=== PATIENT | female | born 1975 | race Caucasian/White ===

== ENCOUNTER 2021-07-30 13:15 | Observation (INO) | payer OTHER, SELFPAY ==
[2021-07-30] VITALS (15 sets, daily range): BP systolic 120–171; BP diastolic 60–82; PULSE 69–81; RESP 10–23; TEMP 35.7–37.3; O2SAT 98–100; BMI 40.3
--- NOTE | 2021-07-30 14:29 | ECG_ITS ---
Test Reason : ?blood transfusion Blood Pressure : / mmHG Vent. Rate : 078 BPM Atrial Rate : 078 BPM P-R Int : 168 ms QRS Dur : 098 ms QT Int : 398 ms P-R-T Axes : 018 -10 031 degrees QTc Int : 453 ms Normal sinus rhythm Moderate voltage criteria for LVH, may be normal variant ( R in aVL , [place] product ) Borderline ECG No previous ECGs available Referred By: Generic ED Physician Electronically Signed By:Chau Walker
[2021-07-30 15:12] LABS: MANUAL DIFF FLAG NO
[2021-07-30 15:15] LABS: Basophils Absolute Auto 0.1 X10*3/uL (0.0-0.2); Basophils Percent Auto 0.7 % (0-2); Eosinophils Absolute Auto 0.1 X10*3/uL (0.0-0.4); Eosinophils Percent Auto 0.7 % (0-4); Hematocrit 23.9 % (37.0-47.0); Imm Gran Abs Auto 0.03 X10*3/uL (0.00-0.03); Imm Gran Pct Auto 0.3 % (0.0-0.4); Lymphocytes Absolute Auto 2.6 X10*3/uL (1.2-4.9); Lymphocytes Percent Auto 24.9 % (20-40); Mean Corpuscular HGB Conc 24.7 g/dl (31.0-35.0); Mean Corpuscular Hemoglobin 13.3 pg (27.0-33.0); Monocytes Absolute Auto 0.6 X10*3/uL (0.1-1.2); Monocytes Percent Auto 6.2 % (2-11); NRBC Pct Auto 0.2 /100WBC (0.0-0.2); Neutrophils Percent Auto 67.2 % (45-73); Platelet Count 521 X10*3/uL (160-400); Red Blood Count 4.43 X10*6/uL (4.20-5.50); White Blood Count 10.4 X10*3/uL (4.8-10.8)
[2021-07-30 15:19] LABS: Hemoglobin 5.9 g/dl (12.0-16.0)
[2021-07-30 15:25] LABS: Anion Gap 14 (12-20); Blood Urea Nitrogen 7 mg/dL (9-16); Calcium 9.7 mg/dL (8.4-10.2); Carbon Dioxide 28 mmol/L (22-29); Chloride 99 mmol/L (96-108); Creatinine Clr Calc Pharmacy 136.1; Estimated Glomerular Filt Rate > 60; Glucose Random 108 mg/dL (60-115); Potassium 3.8 mmol/L (3.3-5.1); Sodium 137 mmol/L (135-145)
--- NOTE | 2021-07-30 15:41 | ED_ITS ---
HPI - Recheck/Abnormal Lab/Rx General Chief Complaint: Recheck/Abnormal Lab/Rx Stated Complaint: Blood transfusion sent by pcp Time Seen by Provider: 07/30/21 15:18 Source: patient Mode of arrival: ambulatory Limitations: no limitations History of Present Illness HPI narrative: 45 yo female with history of GERD on high dose PPI, history of obesity, HTN who presents to the ER for abnormal blood work, found to have an hemoglobin of 5.8g/dL. She reports having basic lab workup with her PCP last Monday. She got the results on Monday of this week that showed she had low blood counts. She does not know the numbers, but she denies being instructed to come to the ER, repeat labs were done that day. She saw her GI doctor today and her repeat labs came back worse. She was instructed to come to the ER for blood transfusion. She reports for the last couple of weeks she has felt short of breath, dizzy and weak. Patient denies history of anemia or ever requiring a blood transfusion. She has chronic GERD but denies history of GI bleed. She denies any history of melena or bright red blood per rectum. She had EGD done in May that only showed some mild inflammation and a stomach polyp that was removed. She reports some recent dietary changes due to her ongoing GERD symptoms - she makes her own yogurt and saurkraut, takes OTC supplements (omega 3, vit D3, kelp). Denies any other new meds. Denies cancer history. Colon cancer in maternal grandmother's side - 3 uncles. She is getting a colonoscopy next week. MD complaint: abnormal lab Initial visit (ago): week(s) Returns today for: called because of abnormal lab/test Description of abnormal result: hemoglobin 5.8 Context: called for abnormal lab result Associated symptoms: shortness of breath and malaise Related Data Allergies Allergy/AdvReac Type Severity Reaction Status Date / Time Unable to Assess Allergy Unverified 07/30/21 15:40 Review of Systems Review of Systems: Constitutional: No Fever, No Chills ENT/Mouth: No sore throat, No Rhinorrhea, No Swallowing Difficulty Eyes: No Eye Pain, No Swelling, No Redness Cardiovascular: No Chest Pain, + SOB, No Orthopnea, No Edema Respiratory: No Cough, No Sputum, No Wheezing, No dyspnea Gastrointestinal: No Nausea, No Vomiting, No Diarrhea, + abdominal Pain, No Hematochezia, No Melena Genitourinary: No Dysuria, No Urinary Frequency, No Hematuria Musculoskeletal: No joint pain, No Myalgias Skin: No Skin Lesions, No rash Neuro: + Weakness, No Numbness, + Dizziness, No Headache Psych: No Anxiety/Panic, No Depression Heme/Lymph: No Bruising, No Lymphadenopathy Endocrine: No Polyuria, No Polydipsia [facility] Past Medical History Medical History (Updated 07/30/21 @ 18:09 by Jake Sebastian) Environmental allergies GERD (gastroesophageal reflux disease) Hypertension Sleep apnea Social History Social History Alcohol intake: never Patient Tobacco Use Status: Never used Tobacco Use of substances other than those prescribed or required for medical reasons: No Advance Directives: Yes Advance Directives Information Provided: No Advance Directives on File: No Patient : No Physical Exam Vital Signs: Vital Signs: Last Vital Signs Temp 98.2 F 07/30/21 17:53 Pulse 69 07/30/21 17:53 Resp 15 07/30/21 17:53 BP 130/67 07/30/21 17:53 Pulse Ox 100 07/30/21 17:32 BMI result Body Mass Index 40.3 Appearance: Alert. Pale Oriented X3. No acute distress. Eyes: Pupils equal, round and reactive to light. Conjunctival pallor ENT: Pharynx normal. Neck: Normal inspection. Neck supple. CVS: Normal heart rate and rhythm. Pulses normal. Respiratory: No respiratory distress. Breath sounds normal. Abdomen: Obese, Soft and nontender. +BS x4 Skin: Skin warm and dry. Normal skin color. Normal skin turgor. No rashes. Extremities: No lower extremity edema. Neuro: Oriented X 3. No motor deficit. No sensory deficit. Course Course Course Narrative: 45-year-old female with a history of hypertension, GERD, obesity who presents to the ER with new symptomatic anemia. She denies any signs or symptoms of GI bleeding. She is symptomatic with dizziness and shortness of breath. She is also weak. She denies history of anemia in the past, reports getting q.6 month blood work by her GI doctor. Lab work done here shows a hemoglobin of 5.9 and hematocrit of 23.9. Her MCV is extremely low at 54. She has a thrombocytosis as well with platelets 521. Will check Hemoccult stool, repeat CBC, type and screen and plan to transfuse 2 units of blood. Will check iron studies and reticulocyte count. Anticipate admission for monitoring. Reevaluation(s) Reevaluation #1: Repeat H&H 5.8/22.7. Hemoccult stool is negative. Her iron studies show an iron sat of 4%. She may benefit from IV iron infusion as well. Will plan to transfuse 2 units and admit her to hospital for further evaluation and management. MDM - Recheck/Abnormal Lab/Rx Medical Records Attestation: I reviewed the patient's medical records. Lab Data Attestation: I reviewed the patient's lab results. Result diagrams: 07/30/21 16:29 07/30/21 15:08 Labs: Lab Results 07/30/21 07/30/21 07/30/21 Range/Units 15:07 15:08 15:08 WBC 10.4 (4.8-10.8) X10*3/uL RBC 4.43 (4.20-5.50) X10*6/uL Hgb 5.9 L* (12.0-16.0) g/dl Hct 23.9 L (37.0-47.0) % MCV 54.0 L (80.0-98.0) fL MCH 13.3 L (27.0-33.0) pg MCHC 24.7 L (31.0-35.0) g/dl RDW 25.0 H (11.0-16.0) % Plt Count 521 H (160-400) X10*3/uL MPV Not Reportable Immature Gran % (Auto) 0.3 (0.0-0.4) % Neut % (Auto) 67.2 (45-73) % Lymph % (Auto) 24.9 (20-40) % [place] % (Auto) 6.2 (2-11) % Eos % (Auto) 0.7 (0-4) % Baso % (Auto) 0.7 (0-2) % Lymph # (Auto) 2.6 (1.2-4.9) X10*3/uL [place] # (Auto) 0.6 (0.1-1.2) X10*3/uL Eos # (Auto) 0.1 (0.0-0.4) X10*3/uL Baso # (Auto) 0.1 (0.0-0.2) X10*3/uL Abs Immat Gran (auto) 0.03 (0.00-0.03) X10*3/uL Absolute Neuts (auto) 7.0 (2.0-8.3) x10*3/uL Absolute Nucleated RBC 0.020 H (0.0-0.012) X10*3/uL Nucleated RBC % (auto) 0.2 (0.0-0.2) /100WBC Smear Tech's Comments Absolute Retic 0.080 (0.026-0.095) X10*6/uL Percent Retic 1.8 (0.5-1.8) % Immature Retic Fraction 26.6 H (3.0-15.9) % Retic Hgb Equivalent 13.9 L (30.0-35.0) pg Sodium 137 (135-145) mmol/L Potassium 3.8 (3.3-5.1) mmol/L Chloride 99 (96-108) mmol/L Carbon Dioxide 28 (22-29) mmol/L Anion Gap 14 (12-20) BUN 7 L (9-16) mg/dL Creatinine 0.66 (0.5-1.4) mg/dL Estim Creat Clear Calc 136.1 Estimated GFR > 60 Random Glucose 108 (60-115) mg/dL Calcium 9.7 (8.4-10.2) mg/dL Iron 15 L (30-160) mcg/dL TIBC 398 (228-428) mcg/dL % Saturation 4 L (15-50) % Unsat Iron Binding 383 ug/dL Stool Occult Blood (NEGATIVE) Blood Type O Positive Antibody Screen NEGATIVE Crossmatch See Detail 07/30/21 07/30/21 Range/Units 16:19 16:29 WBC 9.2 (4.8-10.8) X10*3/uL RBC 4.21 (4.20-5.50) X10*6/uL Hgb 5.8 L* (12.0-16.0) g/dl Hct 22.7 L (37.0-47.0) % MCV 53.9 L (80.0-98.0) fL MCH 13.8 L (27.0-33.0) pg MCHC 25.6 L (31.0-35.0) g/dl RDW 25.1 H (11.0-16.0) % Plt Count 510 H (160-400) X10*3/uL MPV Not Reportable Immature Gran % (Auto) 0.7 H (0.0-0.4) % Neut % (Auto) 66.8 (45-73) % Lymph % (Auto) 25.0 (20-40) % [place] % (Auto) 5.9 (2-11) % Eos % (Auto) 0.8 (0-4) % Baso % (Auto) 0.8 (0-2) % Lymph # (Auto) 2.3 (1.2-4.9) X10*3/uL [place] # (Auto) 0.5 (0.1-1.2) X10*3/uL Eos # (Auto) 0.1 (0.0-0.4) X10*3/uL Baso # (Auto) 0.1 (0.0-0.2) X10*3/uL Abs Immat Gran (auto) 0.06 H (0.00-0.03) X10*3/uL Absolute Neuts (auto) 6.2 (2.0-8.3) x10*3/uL Absolute Nucleated RBC 0.000 (0.0-0.012) X10*3/uL Nucleated RBC % (auto) 0.0 (0.0-0.2) /100WBC Smear Tech's Comments VERIFIED Absolute Retic (0.026-0.095) X10*6/uL Percent Retic (0.5-1.8) % Immature Retic Fraction (3.0-15.9) % Retic Hgb Equivalent (30.0-35.0) pg Sodium (135-145) mmol/L Potassium (3.3-5.1) mmol/L Chloride (96-108) mmol/L Carbon Dioxide (22-29) mmol/L Anion Gap (12-20) BUN (9-16) mg/dL Creatinine (0.5-1.4) mg/dL Estim Creat Clear Calc Estimated GFR Random Glucose (60-115) mg/dL Calcium (8.4-10.2) mg/dL Iron (30-160) mcg/dL TIBC (228-428) mcg/dL % Saturation (15-50) % Unsat Iron Binding ug/dL Stool Occult Blood NEGATIVE (NEGATIVE) Blood Type Antibody Screen Crossmatch ECG Data Attestation: I personally reviewed and interpreted this ECG as follows: ECG interpretation date: 07/30/21 ECG interpretation time: 17:53 Prior ECG tracings: not available for review Interpretation: Normal sinus rhythm, heart rate 78 beats per minute, normal WA interval, normal QTC, moderate voltage criteria for LVH, no ST segment elevations or depressions. Critical Care Time Critical Care Time Critical Care Time: Yes Total Critical Care Time: 36 Attestation: I have personally provided critical care time exclusive of time spent on separately billable procedures. Time includes review of lab data, radiology results, discussion with hospitalist, and monitoring for potential decompen sation. Intervention performed as documented. Discharge Plan Discharge Clinical Impression: Symptomatic anemia, Thrombocytosis, Iron deficiency, Microcytosis Patient Disposition: Admitted As Inpatient
[2021-07-30 16:00] LABS: Iron 15 mcg/dL (30-160); Percent Iron Saturation 4 % (15-50); Total Iron Binding Capacity 398 mcg/dL (228-428); Unsaturated Iron Binding 383 ug/dL
[2021-07-30 16:15] LABS: Immature Retic Fraction 26.6 % (3.0-15.9); Retic HGB Equivalent 13.9 pg (30.0-35.0); Reticulocyte Percent 1.8 % (0.5-1.8); SCAN SMEAR FLAG 1
[2021-07-30 16:16] LABS: PLT ABN DIST 1
[2021-07-30 16:24] LABS: OBS1 NEGATIVE (NEGATIVE)
[2021-07-30 16:25] LABS: OBS Int Ctl Valid YES
[2021-07-30 16:38] LABS: SCAN SMEAR FLAG 1
[2021-07-30 16:40] LABS: Basophils Absolute Auto 0.1 X10*3/uL (0.0-0.2); Basophils Percent Auto 0.8 % (0-2); Eosinophils Absolute Auto 0.1 X10*3/uL (0.0-0.4); Eosinophils Percent Auto 0.8 % (0-4); Hematocrit 22.7 % (37.0-47.0); Imm Gran Abs Auto 0.06 X10*3/uL (0.00-0.03); Imm Gran Pct Auto 0.7 % (0.0-0.4); Lymphocytes Absolute Auto 2.3 X10*3/uL (1.2-4.9); MANUAL DIFF FLAG SCAN; Mean Corpuscular HGB Conc 25.6 g/dl (31.0-35.0); Mean Corpuscular Hemoglobin 13.8 pg (27.0-33.0); Monocytes Absolute Auto 0.5 X10*3/uL (0.1-1.2); Monocytes Percent Auto 5.9 % (2-11); Neutrophils Absolute Auto 6.2 x10*3/uL (2.0-8.3); Neutrophils Percent Auto 66.8 % (45-73); Platelet Count 510 X10*3/uL (160-400); Red Blood Count 4.21 X10*6/uL (4.20-5.50); Red Cell Distribution Width 25.1 % (11.0-16.0); White Blood Count 9.2 X10*3/uL (4.8-10.8)
[2021-07-30 16:41] LABS: Mean Corpuscular Volume 53.9 fL (80.0-98.0); PLT ABN DIST 1
[2021-07-30 16:43] LABS: Hemoglobin 5.8 g/dl (12.0-16.0)
[2021-07-30 17:17] LABS: SLIDE REVIEW VERIFIED
--- NOTE | 2021-07-30 18:13 | PC.NURSE ---
pt a&ox3, vss, abnormal labs, 20G IV placed via u/s by PA. blood drawn, second type and screen drawn. 1st unit of blood started, pt tolerating well, no reactions notes, vss.
--- NOTE | 2021-07-30 18:36 | P.HPHOSP_ITS ---
History of Present Illness Date of Service: 07/30/21 Attending physician on admission: Rhona Fabian Chief Complaint: Shortness of breath 45-year-old female patient with past medical history significant for GERD, hypertension presented to [facility] with symptoms of shortness of breath according to patient she has been short of breath since spring, she was diagnosed hypo tension and was placed on lisinopril therefore developed cough therefore her antihypertensive was switched to losartan patient developed shortness of breath on losartan hand she continued to be short of breath for a long time and could not tolerate persistent symptoms therefore her antihypertensive was switched to hydrochlorothiazide for last 1-2 weeks she has noticed that her shortness of breath has been gradually getting worse felt extremely short of breath with exertion therefore went to see her primary care physician a CBC was obtained that showed anemia and a repeat CBC was obtained that showed persistent anemia therefore patient was referred to scan coordinator Dr. Ramonita Anderson patient saw her PA today and has been scheduled for colonoscopy next week patient was referred to [facility] to receive blood transfusion patient has not had CBC done in last several years, patient denies hematemesis, melena no dark-colored stool denies heavy periods usually has 3-4 days regular periods followed by couple days of light bleeding, patient is a vegetarian but is cautious takes green leafy vegetables and iron rich foods, denies family history of anemia, in regard to GERD patient takes high-dose Prilosec and had an upper endoscopy a few months ago that showed no abnormality. There is family history of colon cancer 3 uncles from a grandmother side had colon CA. Review of Systems Review of Systems: General no headache no dizziness no fever chills. CVS no chest pain, no palpitation. Respiratory no cough, shortness of breath Gastrointestinal no nausea no vomiting, epigastric pain no urinary symptoms Musculoskeletal no pain Yes all other systems are reviewed and are negative [facility] Medical History Environmental allergies GERD (gastroesophageal reflux disease) Hypertension Sleep apnea Pertinent family history: Both parents have coronary artery disease in their 60s, 3 grand uncles from maternal side have colon cancer, diabetes in mother side of family Social History Alcohol intake: never Patient Tobacco Use Status: Never used Tobacco Use of substances other than those prescribed or required for medical reasons: No Advance Directives: Yes Advance Directives Information Provided: No Advance Directives on File: No Patient : No Meds Allergies Allergy/AdvReac Type Severity Reaction Status Date / Time Unable to Assess Allergy Unverified 07/30/21 15:40 Active Medications: Current Medications Pharmacy Consult (Consult Rx Perform Med Rec) 1 each MISCELLANE ONCE PRN PRN Reason: Consult order Physical Exam Vital Signs and Narrative: Vital Signs: Last Vital Signs Temp 98.8 F 07/30/21 18:09 Pulse 70 07/30/21 18:09 Resp 23 H 07/30/21 18:09 BP 133/60 07/30/21 18:09 Pulse Ox 100 07/30/21 17:32 BMI result Body Mass Index 40.3 Const: Other: General awake alert,no acute distress. HEENT pupils equal round reactive to light and accommodate Neck no JVD. CVS regular rate rhythm, Respiratory lungs clear to auscultation, no respiratory distress, no wheeze, no rhonchi. Gastrointestinal abdomen soft, nontender, bowel sounds audible Extremities no edema. Neuro nonfocal Skin no rash/pallor Psych appropriate affect Results Labs CBC and Chem 7: 07/30/21 16:29 07/30/21 15:08 Labs: Laboratory Results - last 24 hr 07/30/21 07/30/21 07/30/21 15:07 15:08 15:08 MCV 54.0 L MCH 13.3 L MCHC 24.7 L RDW 25.0 H Plt Count 521 H MPV Not Reportable Immature Gran % (Auto) 0.3 Neut % (Auto) 67.2 Lymph % (Auto) 24.9 [place] % (Auto) 6.2 Eos % (Auto) 0.7 Baso % (Auto) 0.7 Lymph # (Auto) 2.6 [place] # (Auto) 0.6 Eos # (Auto) 0.1 Baso # (Auto) 0.1 Abs Immat Gran (auto) 0.03 Absolute Neuts (auto) 7.0 Absolute Nucleated RBC 0.020 H Nucleated RBC % (auto) 0.2 Smear Tech's Comments Absolute Retic 0.080 Percent Retic 1.8 Immature Retic Fraction 26.6 H Retic Hgb Equivalent 13.9 L Anion Gap 14 Estim Creat Clear Calc 136.1 Estimated GFR > 60 Random Glucose 108 Calcium 9.7 Iron 15 L TIBC 398 % Saturation 4 L Unsat Iron Binding 383 Stool Occult Blood Blood Type O Positive Antibody Screen NEGATIVE Crossmatch See Detail 07/30/21 07/30/21 16:19 16:29 MCV 53.9 L MCH 13.8 L MCHC 25.6 L RDW 25.1 H Plt Count 510 H MPV Not Reportable Immature Gran % (Auto) 0.7 H Neut % (Auto) 66.8 Lymph % (Auto) 25.0 [place] % (Auto) 5.9 Eos % (Auto) 0.8 Baso % (Auto) 0.8 Lymph # (Auto) 2.3 [place] # (Auto) 0.5 Eos # (Auto) 0.1 Baso # (Auto) 0.1 Abs Immat Gran (auto) 0.06 H Absolute Neuts (auto) 6.2 Absolute Nucleated RBC 0.000 Nucleated RBC % (auto) 0.0 Smear Tech's Comments VERIFIED Absolute Retic Percent Retic Immature Retic Fraction Retic Hgb Equivalent Anion Gap Estim Creat Clear Calc Estimated GFR Random Glucose Calcium Iron TIBC % Saturation Unsat Iron Binding Stool Occult Blood NEGATIVE Blood Type Antibody Screen Crossmatch Assessment and Plan (1) Symptomatic anemia: Status: Acute (2) Thrombocytosis: Status: Acute (3) Iron deficiency: Status: Acute Plan 45-year-old female patient presented to [facility] with progressive worsening shortness of breath of several day duration, diagnosed to have anemia by PCP therefore referred for blood transfusion. Symptomatic iron deficiency anemia No acute blood loss Hematocrit 22.7 with a hemoglobin 5.8, MCV 53.9 Iron studies consistent with iron deficiency anemia with saturation 4%, iron 15 and TIBC of 398 Patient seen by gastroenterology and is scheduled for colonoscopy next week/status post upper endoscopy spring negative study as per patient Will transfuse 2 unit of packed RBC follow hematocrit at a.m. Continue Prilosec No evidence of GI bleed, no heavy periods question related to diet, poor absorption, bone marrow disease. Reactive thrombocytosis follow CBC GERD continue Prilosec Hypertension stable blood pressure continue home medication Morbid obesity recommend low-calorie diet DVT prophylaxis with compression boots Code status full code Quality Stroke Does the patient have a stroke diagnosis?: No VTE Prior VTE?: No VTE Risk Level:: Medical - moderate - high VTE Device Contraindication: N/A - Device Ordered VTE Drug Contraindication: Treatment Not Indicated
[2021-07-30 18:53] LABS: COVID-19 Test Negative (Negative); IDNOW Serial# 16C4AD1C
--- NOTE | 2021-07-30 19:35 | PHA.MEDREC ---
Pharmacy Consult ? Medication Reconciliation Pharmacy has completed the medication reconciliation.
[2021-07-30] MEDS: Omeprazole 40 MG CAPSULE.DR PO (19:49)
--- NOTE | 2021-07-30 19:52 | PC.NURSE ---
medicated per provider order.
--- NOTE | 2021-07-30 21:37 | PC.NURSE ---
pt a&ox3, vss, ambulated independently to bathroom, 2nd unit of RBC hung.
--- NOTE | 2021-07-30 21:43 | PC.NURSE ---
vss, blood running, no new orders at this time.
--- NOTE | 2021-07-30 21:54 | PC.NURSE ---
attempted to call report to S3 nurse, just got a new pt will call back for report.
[2021-07-31] VITALS: BP 147/60; PULSE 73; RESP 18; TEMP 36.6; O2SAT 98
[2021-07-31 00:16] VITALS: BP 141/70; PULSE 71; RESP 20; TEMP 36.1
[2021-07-31] MEDS: 0.9 % Sodium Chloride Flush 3 ML SYRINGE IVFLUSH ×2 (00:21→10:26)
[2021-07-31 02:54] VITALS: BP 138/62; PULSE 62; RESP 18; TEMP 36.3; O2SAT 99
[2021-07-31] MEDS: Omeprazole 40 MG CAPSULE.DR PO (05:32)
[2021-07-31 06:05] LABS: Mean Corpuscular Hemoglobin 15.3 pg (27.0-33.0); Red Cell Distribution Width 29.5 % (11.0-16.0)
[2021-07-31 06:07] LABS: Hematocrit 25.8 % (37.0-47.0); Mean Corpuscular HGB Conc 26.4 g/dl (31.0-35.0); Platelet Count 440 X10*3/uL (160-400); Red Blood Count 4.43 X10*6/uL (4.20-5.50); White Blood Count 9.2 X10*3/uL (4.8-10.8)
[2021-07-31 06:28] LABS: Mean Corpuscular Volume 58.2 fL (80.0-98.0); PLT ABN DIST 1
[2021-07-31 06:43] LABS: Hemoglobin 6.8 g/dl (12.0-16.0)
[2021-07-31 07:49] VITALS: BP 140/65; PULSE 64; RESP 17; TEMP 36.1; O2SAT 100
[2021-07-31] MEDS: hydroCHLOROthiazide 25 MG TABLET PO (10:25)
[2021-07-31 11:02] VITALS: BP 132/65; PULSE 73; RESP 16; TEMP 36.1
[2021-07-31 11:19] VITALS: BP 128/63; PULSE 76; RESP 14; TEMP 36.1
[2021-07-31 14:57] LABS: Hematocrit 30.1 % (37.0-47.0); Hemoglobin 8.3 g/dl (12.0-16.0)
--- NOTE | 2021-07-31 14:58 | MHC.CM.PN ---
Addendum entered by Sarah Browne 07/31/21 15:02: PATIENT USES A CPAP @ NIGHT SETTINGS FROM 8 TO 11 MAX Original Note: PATIENT IS FULLY INDEPENDENT LIVES WITH HCP/PARTNER COPY REQUESTED IF PATIENT IS TO COME BACK TO [facility] IN THE FUTURE. M.O.O.N EXPLAINED PATIENT IS GETTING DRESSED OT RETURN HOME TODAY PARTNER IS IN ROOM TO PROVIDE TRANSPORT HOME. COVID VACCINATED ZHAO 07/31 IN CHART
--- NOTE | 2021-07-31 15:19 | P.DS_ITS ---
DS: Providers Provider Date of Service: 07/31/21 Date of admission: 07/30/21 18:31 Primary care physician: Macrina Valdez MD DS: Diagnosis Discharge Diagnosis (1) Symptomatic anemia: Status: Acute (2) Thrombocytosis: Status: Acute (3) Iron deficiency: Status: Acute DS: Summary Hospital Course Hospital Course: History of present illness Chief Complaint: Shortness of breath 45-year-old female patient with past medical history significant for GERD, hypertension presented to [facility] with symptoms of shortness of breath according to patient she has been short of breath since spring, she was diagnosed hypo tension and was placed on lisinopril therefore developed cough therefore her antihypertensive was switched to losartan patient developed shortness of breath on losartan hand she continued to be short of breath for a long time and could not tolerate persistent symptoms therefore her antihypertensive was switched to hydrochlorothiazide for last 1-2 weeks she has noticed that her shortness of breath has been gradually getting worse felt extremely short of breath with exertion therefore went to see her primary care physician a CBC was obtained that showed anemia and a repeat CBC was obtained that showed persistent anemia therefore patient was referred to supply chain technician Dr. Ramonita Anderson patient saw her PA today and has been scheduled for colonoscopy next week patient was referred to [facility] to receive blood transfusion patient has not had CBC done in last several years, patient denies hematemesis, melena no dark-colored stool denies heavy periods usually has 3-4 days regular periods followed by couple days of light bleeding, patient is a vegetarian but is cautious takes green leafy vegetables and iron rich foods, denies family history of anemia, in regard to GERD patient takes high-dose Prilosec and had an upper endoscopy a few months ago that showed no abnormality. There is family history of colon cancer 3 uncles from a grandmother side had colon CA. Hospital course 45-year-old female patient presented to [facility] with progressive worsening shortness of breath of several day duration, diagnosed to have anemia by PCP therefore referred for blood transfusion. Patient admitted with a diagnosis of Symptomatic iron deficiency anemia, Hematocrit 22.7 with a hemoglobin 5.8, MCV 53.9,Iron studies consistent with iron deficiency anemia with saturation 4%, iron 15 and TIBC of 398 Patient denied hematemesis, no melena, no heavy periods, seen by gastroenterology on day of admission and scheduled for colonoscopy next week/status post upper endoscopy spring negative study as per patient Patient admitted to medical floor received 3 units of packed RBC, repeat hematocrit is 30 and hemoglobin of 8.3, patient is being discharged home with strong recommendation to follow-up with gastroenterology for workup to diagnose cause of anemia. Reactive thrombocytosis follow CBC GERD continue Prilosec Hypertension stable blood pressure continue hydrochlorothiazide Time Spent with Patient Time attestation: Total time spent providing and/or coordinating discharge services: Discharge coordination time: Greater than 30 minutes Quality: Safe Use of Opioids Does Pt have an Active Cancer Diagnosis on the Problem List?: No Quality: Stroke Does the patient have a stroke diagnosis?: No Physical Exam Vital Signs: Vital Signs: Last Vital Signs Temp 96.9 F 07/31/21 11:19 Pulse 76 07/31/21 11:19 Resp 14 07/31/21 11:19 BP 128/63 07/31/21 11:19 Pulse Ox 100 07/31/21 07:49 BMI result Body Mass Index 40.3 Const: Other: General awake aler t,no acute distres s.? HEENT pupils e qual round reactiv e to light and acc ommodation Neck no JVD. CVS? regular rate rhythm, Resp iratory lungs wyatt r to auscultation, no respiratory di stress, no wheeze, no rhonchi. Gastr ointestinal abdome n soft, nontender, bowel sounds isis ble Extremities no edema. Neuro nonf ocal Skin no rash/ pallor Psych appro priate affect DS: Data Data Completed and Pending Labs on day of discharge: Laboratory Results - last 24 hr 07/30/21 07/30/21 07/30/21 15:07 15:08 15:08 WBC 10.4 RBC 4.43 Hgb 5.9 L* Hct 23.9 L MCV 54.0 L MCH 13.3 L MCHC 24.7 L RDW 25.0 H Plt Count 521 H MPV Not Reportable Immature Gran % (Auto) 0.3 Neut % (Auto) 67.2 Lymph % (Auto) 24.9 [place] % (Auto) 6.2 Eos % (Auto) 0.7 Baso % (Auto) 0.7 Lymph # (Auto) 2.6 [place] # (Auto) 0.6 Eos # (Auto) 0.1 Baso # (Auto) 0.1 Abs Immat Gran (auto) 0.03 Absolute Neuts (auto) 7.0 Absolute Nucleated RBC 0.020 H Nucleated RBC % (auto) 0.2 Smear Tech's Comments Absolute Retic 0.080 Percent Retic 1.8 Immature Retic Fraction 26.6 H Retic Hgb Equivalent 13.9 L Sodium 137 Potassium 3.8 Chloride 99 Carbon Dioxide 28 Anion Gap 14 BUN 7 L Creatinine 0.66 Estim Creat Clear Calc 136.1 Estimated GFR > 60 Random Glucose 108 Calcium 9.7 Iron 15 L TIBC 398 % Saturation 4 L Unsat Iron Binding 383 Stool Occult Blood COVID-19 ([facility]) COVID-19 Clin Com Blood Type O Positive Antibody Screen NEGATIVE Crossmatch See Detail 07/30/21 07/30/21 07/30/21 16:19 16:29 18:16 WBC 9.2 RBC 4.21 Hgb 5.8 L* Hct 22.7 L MCV 53.9 L MCH 13.8 L MCHC 25.6 L RDW 25.1 H Plt Count 510 H MPV Not Reportable Immature Gran % (Auto) 0.7 H Neut % (Auto) 66.8 Lymph % (Auto) 25.0 [place] % (Auto) 5.9 Eos % (Auto) 0.8 Baso % (Auto) 0.8 Lymph # (Auto) 2.3 [place] # (Auto) 0.5 Eos # (Auto) 0.1 Baso # (Auto) 0.1 Abs Immat Gran (auto) 0.06 H Absolute Neuts (auto) 6.2 Absolute Nucleated RBC 0.000 Nucleated RBC % (auto) 0.0 Smear Tech's Comments VERIFIED Absolute Retic Percent Retic Immature Retic Fraction Retic Hgb Equivalent Sodium Potassium Chloride Carbon Dioxide Anion Gap BUN Creatinine Estim Creat Clear Calc Estimated GFR Random Glucose Calcium Iron TIBC % Saturation Unsat Iron Binding Stool Occult Blood NEGATIVE COVID-19 ([facility]) Negative COVID-19 Clin Com See Note Blood Type Antibody Screen Crossmatch 07/31/21 07/31/21 05:49 14:46 WBC 9.2 RBC 4.43 Hgb 6.8 L* 8.3 L D Hct 25.8 L 30.1 L MCV 58.2 L MCH 15.3 L MCHC 26.4 L RDW 29.5 H Plt Count 440 H MPV 9.0 L Immature Gran % (Auto) Neut % (Auto) Lymph % (Auto) [place] % (Auto) Eos % (Auto) Baso % (Auto) Lymph # (Auto) [place] # (Auto) Eos # (Auto) Baso # (Auto) Abs Immat Gran (auto) Absolute Neuts (auto) Absolute Nucleated RBC 0.000 Nucleated RBC % (auto) 0.0 Smear Tech's Comments Absolute Retic Percent Retic Immature Retic Fraction Retic Hgb Equivalent Sodium Potassium Chloride Carbon Dioxide Anion Gap BUN Creatinine Estim Creat Clear Calc Estimated GFR Random Glucose Calcium Iron TIBC % Saturation Unsat Iron Binding Stool Occult Blood COVID-19 ([facility]) COVID-19 Clin Com Blood Type Antibody Screen Crossmatch Discharge Plan Discharge Patient Disposition: Home, Self-Care Discharge Diagnosis: Symptomatic anemia Iron deficiency Referrals: Macrina Valdez MD [Primary Care Provider] - 1 Week Discharge Medications: New ferrous sulfate 325 mg (65 mg iron) tablet 325 mg PO BID Qty: 60 0RF Continued cetirizine 10 mg Tablet 10 mg PO DAILY 0RF cetirizine 10 mg Tablet 10 mg PO DAILY PRN (Reason: Allergic Symptoms) 0RF omeprazole 20 mg capsule,delayed release(DR/EC) 2 cap PO BID 0RF hydrochlorothiazide 25 mg tablet 1 tab PO DAILY 0RF Discharge Orders: Discharge Order (Routine); Ordered 07/31/21 Ordered By: Rhona Fabian Diet: advance to usual diet Activity on Discharge: As tolerated Stand Alone Forms: Patient Portal Discharge page Care Plan Goals: Iron deficiency anemia, take iron supplement twice daily, use stool softeners if develops constipation, take iron with vitamin-C 250 mg twice Daily for better iron absorption, follow-up with gastroenterology for outpatient workup Health Concerns: Hypertension/GERD/iron deficiency anemia continue all home medication Plan of Treatment: Outpatient follow-up with PCP and Gastroenterology as planned Assessment: As per discharge summary
--- NOTE | 2021-08-06 00:17 | PC.NURSE ---
LATE ENTRY BLOOD TRANSFUSION 07/31/21 UNIT #[id number] ENDED 07/31/21 AT 0015.TOTAL VOLUME INFUSED 350ML. UNABLE TO EDIT IN TAR.
== END 2021-07-31 15:43 | disposition home or self-care (01) ==
LOC: HO.ED 17:53 → HO.EDOVER 18:44 → HO.S3 21:25
PROVIDERS: Physician Assistant; Admitting Provider Hospitalist; Emergency Provider Emergency Medicine; PCP Family Medicine; Visit Provider Hospitalist
DX: D50.9 Iron deficiency anemia, unspecified (principal); D75.839 Thrombocytosis, unspecified; R06.02 Shortness of breath; K21.9 Gastro-esophageal reflux disease without esophagitis; I10 Essential (primary) hypertension; E66.01 Morbid (severe) obesity due to excess calories; Z68.41 Body mass index [BMI] 40.0-44.9, adult; Z67.40 Type O blood, Rh positive; Z20.822 Contact with and (suspected) exposure to COVID-19; Z80.0 Family history of malignant neoplasm of digestive organs
CPT/HCPCS: 36415; 36430; 80048; 82272; 83540; 85014; 85018; 85025; 85027; 85045; 86850; 86900; 86901; 86920; 86923; 87635; 93005; 96374; 99218; 99285; 99291; P9016